=== PATIENT | female | born 1950 | race Caucasian/White ===

== ENCOUNTER 2020-01-02 07:23 | Emergency (ER) | payer MEDICARE ==
[~2020-01-02] VITALS: Ht 172.7 cm; Wt 153.7 kg
[~2020-01-02 07:23] MED LIST: WARF5TAB2 PO
[2020-01-02 07:58] LABS: BASOPHILS # (AUTO) 0.1 X10'3 (0-0.2); BASOPHILS % (AUTO) 0.9 % (0-1); EOSINOPHILS # (AUTO) 0.2 X10'3 (0-0.9); EOSINOPHILS % (AUTO) 2.3 % (0-6); HEMATOCRIT 43.6 % (35.0-45.0); HEMOGLOBIN 14.7 g/dl (12.0-16.0); LYMPHOCYTES # (AUTO) 1.6 X10'3 (1.1-4.8); LYMPHOCYTES % (AUTO) 23.7 % (21-51); MEAN CORPUSCULAR HGB CONC 33.7 g/dL (33.0-36.5); MEAN PLATELET VOLUME 8.7 FL (7.4-10.4); MONOCYTES # (AUTO) 0.6 X10'3 (0-0.9); MONOCYTES % (AUTO) 8.8 % (2-12); NEUTROPHILS # (AUTO) 4.5 X10'3 (1.8-7.7); NEUTROPHILS % (AUTO) 64.3 % (42-75); PLATELET COUNT 214 X10'3 (140-440); RED CELL DISTRIBUTION WIDTH 13.8 % (11.5-14.5)
[2020-01-02 08:16] LABS: ALANINE AMINOTRANSFERASE 33 U/L (12-78); ALBUMIN 3.5 G/DL (3.4-5.0); ALBUMIN/GLOBULIN RATIO 0.8 (1.1-1.5); ALKALINE PHOSPHATASE 97 IU/L (46-116); ANION GAP 8 (8-16); ASPARTATE AMINO TRANSFERASE 17 U/L (10-37); BILIRUBIN,TOTAL 0.3 MG/DL (0.1-1.0); BLOOD UREA NITROGEN 13 MG/DL (7-18); BUN/CREATININE RATIO 14.1 (6.6-38.0); CALCIUM 9.7 MG/DL (8.5-10.1); CHLORIDE 106 MMOL/L (99-107); CREATININE 0.92 MG/DL (0.40-0.90); GLUCOSE 140 MG/DL (70-104); POTASSIUM 4.1 MMOL/L (3.5-5.1); SODIUM 140 MMOL/L (135-145); TOTAL CARBON DIOXIDE 25.6 MMOL/L (24-32); TOTAL PROTEIN 7.7 G/DL (6.4-8.2); eGFR 61 ML/MIN
[2020-01-02 10:54] VITALS: BP 152/91
== END 2020-01-02 10:56 | disposition home or self-care (01) ==
LOC: ER 07:24
DX: R00.2 Palpitations (principal); R11.0 Nausea; M54.9 Dorsalgia, unspecified; I10 Essential (primary) hypertension; G47.30 Sleep apnea, unspecified; Z79.2 Long term (current) use of antibiotics; Z79.01 Long term (current) use of anticoagulants
CPT/HCPCS: 36415; 71045; 80053; 83880; 84484; 85025; 93005; 99285

== ENCOUNTER 2022-03-28 10:49 | Emergency (ER) | payer MEDICARE ==
[~2022-03-28] VITALS: Ht 172.7 cm; Wt 150.0 kg
[2022-03-28 10:55] VITALS: BP 150/96
== END 2022-03-28 13:36 | disposition home or self-care (01) ==
LOC: ER 10:50
DX: S00.12XA Contusion of left eyelid and periocular area, initial encounter (principal); R21 Rash and other nonspecific skin eruption; I10 Essential (primary) hypertension; Z91.041 Radiographic dye allergy status; X58.XXXA Exposure to other specified factors, initial encounter; Y93.89 Activity, other specified; Y92.89 Other specified places as the place of occurrence of the external cause; Y99.8 Other external cause status
CPT/HCPCS: 99282; 99283

== ENCOUNTER 2025-02-18 07:19 | Inpatient (IN) | payer MEDICARE ==
--- NOTE | 2025-02-17 10:13 | ELECTROCARDIOGRAPH REPORT ---
[facility] Test Date: 2025-02-17 Test Time: 10:10:17 Pat Name: DUKE MITCHELL Department: PRE/OP CARDIOLOGY [id number] Room: Gender: F Fire Control Assistant: SARAH : 1950 Requested By: IJEOMA NEGRO Order Number: [id number] Reading MD: Dr. MANJEET Silva Measurements Intervals [place] Rate: 70 P: 46 RI: 160 QRS: 8 QRSD: 100 T: 26 QT: 387 QTc: 418 Interpretive Statements Sinus arrhythmia Borderline T abnormalities, anterior leads Electronically Signed On 02-17-2025 17:07:[address] MANJEET Silva Please click the below link to view image of tracing.
[2025-02-17 10:18] LABS: MEAN PLATELET VOLUME 9.4 FL (7.4-10.4); PRE OP HEMATOCRIT 44.0 % (35.0-45.0); PRE OP HEMOGLOBIN 14.9 g/dL (12.0-16.0); PRE OP PLATELET COUNT 206 X10'3 (140-440); PRE OP WHITE BLOOD COUNT 7.1 10'3 (4.8-10.8); RED CELL DISTRIBUTION WIDTH 14.3 % (11.5-14.5)
[2025-02-17 10:24] LABS: LEUKOCYTE ESTERASE ,URINE NEGATIVE (Neg); NITRITES, URINE NEGATIVE (Neg); OCCULT BLOOD,URINE NEGATIVE (Neg)
[2025-02-17 10:26] LABS: PRE OP INR 1.0 INR; PRE OP PARTIAL THROMB. TIME 28.0 SECONDS (22-32); PRE OP PROTIME 10.7 SECONDS (9.0-12.0)
[2025-02-17 10:29] LABS: UA COLLECTION TYPE CLN CATCH MIDSTREAM
[2025-02-17 10:30] LABS: CREATININE 0.66 MG/DL (0.40-0.90); PRE OP ALT 23 U/L (30-65); PRE OP ANION GAP 3 (8-16); PRE OP AST 15 U/L (10-37); PRE OP BILIRUB, TOTAL 0.3 MG/DL (0.0-1.0); PRE OP GLUCOSE 102 MG/DL (70-104); PRE OP POTASSIUM 4.3 MMOL/L (3.4-5.1); PRE OP SODIUM 141 MMOL/L (135-145); TOTAL CARBON DIOXIDE 30.1 MMOL/L (24-32); eGFR 88 ML/MIN
--- NOTE | 2025-02-17 10:44 | RADIOLOGY REPORT ---
EXAM: DI CHEST,TWO VIEWS HISTORY: PREOP COMPARISON: None TECHNIQUE: PA and lateral views of the chest were performed. FINDINGS: No pneumothorax, pulmonary edema, pleural effusions, or consolidative infiltrates. There is mild central peribronchial thickening. The heart is borderline enlarged. The aortic arch is calcific. No fractures are identified about the bony thorax. There is moderate thoracic degenerative disc disease. IMPRESSION: Mild reactive airways disease. The lungs are otherwise clear.
[2025-02-18] VITALS (24 sets, daily range): BP systolic 115–158; BP diastolic 53–112; PULSE 65–115; RESP 11–25; TEMP 97.1–97.4; O2SAT 93–100
[~2025-02-18] VITALS: Ht 172.7 cm; Wt 140.0 kg
[2025-02-18] MEDS: Cefazolin 3 GM/100ML NS IVPB 100 ML IV ONE (05:30)
[~2025-02-18 07:19] MED LIST changes: +AMLO10TA13 PO; +APIX5TAB3 PO; +CYAN-36 PO; +CYCL1DRO EACHEYE; +ESTR42.53 VG; +LIPA1CAP18 PO; +OMEP20CA16 PO; +VITD400T PO; -WARF5TAB2 PO; +ondansetron/PF 4mg/2ml inj IV PRN
[2025-02-18] MEDS: VANCOMYCIN/H2O 1.5g/300mL PB 300 ML IV ONE (08:33)
[2025-02-18] MEDS: ringers solution, lacted 1,000 ML IV SCH (08:33)
[2025-02-18] MEDS ORDERED: fentaNYL/PF 50MCG/1 ML 2ML syringe ONE (09:42)
[2025-02-18] MEDS ORDERED: midazolam 1 mg/ML 2ml injection ONE (09:42)
[2025-02-18] MEDS ORDERED: rocuronium 10mg/ml inj IV ONE (10:09)
[2025-02-18] MEDS ORDERED: glycopyrrolate 0.2mg/ml inj ONE (10:20)
[2025-02-18] MEDS ORDERED: propofol inj 20 ML IV ONE (10:58)
[2025-02-18] MEDS ORDERED: ondansetron/PF 4mg/2ml inj ONE (10:58)
[2025-02-18] MEDS ORDERED: dexamethasone sod phosphate 4mg/ml inj. ONE (10:58)
[2025-02-18] MEDS ORDERED: potassium Cl 20mEq/100mL bag 100 ML IV PRN (12:00)
[2025-02-18] MEDS ORDERED: HYDROcodone/acetaminophen 5mg/325mg tablet PO PRN (12:00)
[2025-02-18] MEDS ORDERED: hydrALAZINE 20mg/ml inj. IV PRN (12:00)
[2025-02-18] MEDS ORDERED: potassium Cl 40MEQ/1/2NS 520ml 520 ML IV PRN (12:00)
[2025-02-18] MEDS ORDERED: labetalol 20mg/4ml (5mg/ml) syringe IV PRN (12:00)
[2025-02-18] MEDS ORDERED: magnesium sulf-water 2g/50mL 50 ML IV PRN (12:00)
[2025-02-18] MEDS ORDERED: potassium Cl 20 mEq SR tablet PO PRN (12:00)
[2025-02-18] MEDS ORDERED: potassium Cl 40MEQ/270ML bag 250 ML IV PRN (12:00)
[2025-02-18] MEDS ORDERED: potassium CL 10mEq/100ml bag 100 ML IV PRN (12:00)
[2025-02-18] MEDS ORDERED: ALPRAZolam 0.25mg tablet PO PRN (12:00)
[2025-02-18] MEDS: normal saline 1000ml 1,000 ML IV SCH (12:00)
[2025-02-18] MEDS ORDERED: docusate sod 100mg capsule PO PRN (12:00)
[2025-02-18] MEDS ORDERED: ondansetron/PF 4mg/2ml inj IV PRN (12:00)
[2025-02-18] MEDS ORDERED: pantoprazole 40mg Tablet.DR PO PRN (12:00)
[2025-02-18] MEDS ORDERED: magnesium sulf-water 4G/100mL 100 ML IV PRN (12:00)
--- NOTE | 2025-02-18 12:00 | ELECTROCARDIOGRAPH REPORT ---
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 MANJEET Silva Measurements Intervals [place] Rate: 71 P: 73 IA: 173 QRS: 52 QRSD: 83 T: -2 QT: 527 QTc: 573 Interpretive Statements Sinus rhythm Borderline T abnormalities, diffuse leads Prolonged QT interval Electronically Signed On 02-18-2025 16:54:[address] MANJEET Silva Please click the below link to view image of tracing.
--- NOTE | 2025-02-18 12:23 | OPERATIVE REPORT ---
Operative Report Providers to CC: GLENN GARCIA MD ~ Date of Procedure: Feb 18, 2025 Pre-Operative Diagnosis: Atrial Fibrillation with high bleeding risk Post-Operative Diagnosis SAME as PRE-Op Procedure Performed 1. Transseptal Puncture via MEI guidance 2. Left Atrial Appendogram 3. Left Atrial Appendage closure with 27mm Watchman FLX Pro Device 4. Ultrasound guided access, right Femoral Vein Surgeon: Ijeoma Garcia MD [employer] Learning Support Teacher n/a Anesthesiologist: Jose Luis Stubbs Type of Anesthesia: General Findings: Left Atrial appendage amenable to percutaneous closure. 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 They underwent General anesthesia. Ultrasound was used to guide access to the right femoral vein where two Perclose devices were placed and upsized to an 8Fr sheath. Heparin was given to maintain an ACT over 250 seconds. An 0.035" wire was advanced into the SVC. The 8Fr sheath was then removed and the 8.5Fr VersaCross Transseptal sheath was advanced into the SVC. The RF wire was then advanced to the tip of the sheath/dilator. Using MEI guidance, appropriate position of the tip of the sheath was determined and using an energized wire tip, advanced into the left atrium. The sheath and dilator were then advanced over the wire into the left atrium. Over the wire, the Versacross sheath was removed and exchanged for the Watchman TruSteer Sheath. The wire and dilator were then removed and exchanged for a 5Fr pigtail catheter which was placed into the left atrial appendage and an appendogram performed in the BERRY- Caudal position. There, ACT was confirmed to be therapeutic. The Watchman sheath was then advanced into the left atrial appendage over the pigtail catheter. Once appropriate position was determined, the pigtail was removed, the 27mm Watchman FLX device and delivery system were advanced into the tip of the sheath. The delivery system was advanced until an appropriate FLX ball was formed. The guide was then retracted and the Watchman device was unsheathed will full deployment in the appendage. Repeat imaging confirmed a slightly deep placement of the device so it was recaptured and repositioned in the anterior lobe of the appendage where it was again unsheathed. Then appeared too proximal so the TruSteer mechanism was used and the device positioned more anteriorly where it was again unsheathed with full deployment in the appendage. (Lobster claw appendage with small distal lobes) Next, PASS criteria was performed confirming adequate positioning and anchoring(using a tug-test), sizing showing adequate compression, and no significant leak around the device. Another Appendogram was performed confirming placement. The device was then released from the delivery system. The guide and delivery system were removed and the perclose tied as well as the hurhel-ga-lyidx suture, ensuring adequate hemostasis. Mean LA Presssure: 13mmHg Contrast: 40cc ACT: 296s Device Compression: 29% RESULTS: 1. Successful Left-Atrial Appendage closure with a 31mm Watchman FLX Pro device 2. Right Femoral Vein access, closed with Perclose x 2 and [id number]-az-[id number] suture 3. Resume Eliquis 5mg BID x 45days with repeat imaging at that time. If sealed without evidence of device related thrombosis, can stop OAC and start ASA 81mg QD indefinitely, plavix 75mg QD x 6 months. They will be watched in the recovery area until stable, then transferred to the telemetry at that time. IJEOMA GARCIA MD Feb 18, 2025 12:23
[2025-02-18] MEDS: Lipase/Protease/Amylase (Creon Dr 36,000 Units Capsule) PO SCH (14:50)
[2025-02-18] MEDS: sod chloride 0.9% 10ml flush syringe IV SCH (16:27)
[2025-02-18] MEDS: ceFAZolin 1GM/D5W- ADD-VANTAGE 50 ML IV SCH (17:13)
--- NOTE | 2025-02-18 17:24 | CARDIOLOGY REPORT ---
APPROVED REPORT EXAM: Focused, limited intraprocedural transesophageal 2D, spectral and color flow Doppler echocardiogram during WATCHMAN deployment. Patient Location: CARDIAC NURSE ORTHO Blood Pressure: 169 / 89 mmHg Heart Rate: 85 bpm Rhythm: SINUS Indications PRE IMAGING AND WATCHMAN FLX ROLF CLOSURE DEVICE IMPLANTATION CHRONIC ATRIAL FIBRILLATION 27mm WATCHMAN FLX ROLF CLOSURE DEVICE MEI PROBE PASSED BY: Angelika PALM MD Reshipping Clerk: Keshawn GARCIA MD / Interventionalist: Keshawn Garcia MD / Device rep: [facility] Previous echo: NA LEFT VENTRICLE Normal LV size and wall thickness. Overall systolic function is normal. LVEF is 70%. RIGHT VENTRICLE RV is normal size and function. ATRIA LA appears severely dilated. Irregular windsock (crab claw appeasrance) shaped appendage without thrombus detected. Left upper pulmonary vein identified. Intact interatrial septum. Width / length averages are: 0degr 11 x 10 mm; 45degr 17 x 18 mm; 90degr 16 x 19 mm; 135degr TDS. Loop 24: Septal tenting visualized with RF atrial septal puncture performed. Loop 27: Wire in LA. Pigtail advanced to tip of appendage. LA pressure is measured at:13 mmHG. Loop 30: Appendagram performed. Loop 32: Flex ball deployed. 27 mm Watchman FLX device, PASS criteria attempted, unsuccessfully. Visible gutter measuring 0.2 cm. Loop 62: Successful "TUG" test performed. PASS reassessed. Optimal compression obtained - shoulder to shoulder measurement is: 19.0 mm. Loop 65: Device released, sheath pulled back across interatrial septum. Device appears to have settled with a visible decrease in gutter size. Patent interatrial septum with small residual left to right shunt (s/p transseptal puncture) visualized with spectral and color Doppler. Successfully occluded left atrial appendage with Watchman device well positioned without thrombus. No significant residual - ? trivial anterior flow around device detected by color Doppler. No pericardial effusion post-implant. PERICARDIUM Trivial anterior pericardial effusion without compromise vs. anterior epicardial fat pad. CONCLUSION Normal LV size and wall thickness. Overall systolic function is normal. LVEF is 70%. RV is normal size and function. LA appears severely dilated. Irregular windsock (crab claw appeasrance) shaped appendage without thrombus detected. Left upper pulmonary vein identified. Intact interatrial septum. Width / length averages are: 0degr 11 x 10 mm; 45degr 17 x 18 mm; 90degr 16 x 19 mm; 135degr TDS. Loop 24: Septal tenting visualized with RF atrial septal puncture performed. Loop 27: Wire in LA. Pigtail advanced to tip of appendage. LA pressure is measured at:13 mmHG. Loop 30: Appendagram performed. Loop 32: Flex ball deployed. 27 mm Watchman FLX device, PASS criteria attempted, unsuccessfully. Visible gutter measuring 0.2 cm. Loop 62: Successful "TUG" test performed. PASS reassessed. Optimal compression obtained - shoulder to shoulder measurement is: 19.0 mm. Loop 65: Device released, sheath pulled back across interatrial septum. Device appears to have settled with a visible decrease in gutter size. Patent interatrial septum with small residual left to right shunt (s/p transseptal puncture) visualized with spectral and color Doppler. Successfully occluded left atrial appendage with Watchman device well positioned without thrombus. No significant residual - ? trivial anterior flow around device detected by color Doppler. No pericardial effusion post-implant. Trivial anterior pericardial effusion without compromise vs. anterior epicardial fat pad. Conclusion Normal LV size and wall thickness. Overall systolic function is normal. LVEF is 70%. RV is normal size and function. LA appears severely dilated. Irregular windsock (crab claw appeasrance) shaped appendage without thrombus detected. Left upper pulmonary vein identified. Intact interatrial septum. Width / length averages are: 0degr 11 x 10 mm; 45degr 17 x 18 mm; 90degr 16 x 19 mm; 135degr TDS. Loop 24: Septal tenting visualized with RF atrial septal puncture performed. Loop 27: Wire in LA. Pigtail advanced to tip of appendage. LA pressure is measured at:13 mmHG. Loop 30: Appendagram performed. Loop 32: Flex ball deployed. 27 mm Watchman FLX device, PASS criteria attempted, unsuccessfully. Visible gutter measuring 0.2 cm. Loop 62: Successful "TUG" test performed. PASS reassessed. Optimal compression obtained - shoulder to shoulder measurement is: 19.0 mm. Loop 65: Device released, sheath pulled back across interatrial septum. Device appears to have settled with a visible decrease in gutter size. Patent interatrial septum with small residual left to right shunt (s/p transseptal puncture) visualized with spectral and color Doppler. Successfully occluded left atrial appendage with Watchman device well positioned without thrombus. No significant residual - ? trivial anterior flow around device detected by color Doppler. No pericardial effusion post-implant. Trivial anterior pericardial effusion without compromise vs. anterior epicardial fat pad.
--- NOTE | 2025-02-18 17:39 | CARDIOLOGY REPORT ---
APPROVED REPORT EXAM: Limited 2D, Doppler, and color-flow Echocardiogram. Patient Location: 3020A Blood Pressure: 155/82 mmHg Heart Rate: 71 bpm Rhythm: Sinus Indications SAME DAY WATCHMAN IMPLANT FOLLOW-UP 27 mm Watchman FLX Closure Device - (02/18/25) Hand Picker is Keshawn Garcia MD Previous echo: 02/18/25, [facility], EF: 70; Intact interatrial septum with small left to right shunt by color and spectral flow Doppler s/p transeptal puncture; Trivial anterior effusion vs Fat Pad 2D Dimensions IVSd 1.1 (0.7-1.1cm) LVDd 4.8 cm PWd 1.0 (0.7-1.1cm) IVSs 1.5 (0.8-1.2cm) LVDs 3.0 (2.5-4.0cm) PWs 1.5 (0.8-1.2cm) LVEF(%) 67.4 (>50%) IVC 18.19 mm FS (%) 37.5 % SV 72.2 ml CO 6.1 L/min Tricuspid Valve TR P. Velocity 210 cm/s RAP ESTIMATE 10 mmHg TR Peak Gr. 18 mmHg RVSP 28 mmHg LEFT VENTRICLE Normal LV size and wall thickness. Overall systolic function is normal. LVEF is 65-70%. ATRIA Left atrium appears moderate to severely dilated. Intact interatrial septum with small L to R shunt s/p transseptal puncture by color and spectral Doppler. TRICUSPID VALVE Tricuspid valve is grossly normal in structure with trace regurgitation. PERICARDIUM Trivial anterior pericardial effusion vs fat pad. Unchanged. Other Information Study Quality: Adequate Conclusion Normal LV size and wall thickness. Overall systolic function is normal. LVEF is 65-70%. Left atrium appears moderate to severely dilated. Intact interatrial septum with small L to R shunt s/p transseptal puncture by color and spectral Doppler. Tricuspid valve is grossly normal in structure with trace regurgitation. Trivial anterior pericardial effusion vs fat pad. Unchanged.
[2025-02-18] MEDS: vancomycin/NS 1 GM ADD-VANTAGE 250 ML IV SCH (19:19)
[2025-02-19 02:00] VITALS: BP 126/60; PULSE 55; RESP 16; TEMP 97; O2SAT 92
[2025-02-19 06:00] VITALS: BP 155/72; PULSE 60; RESP 17; TEMP 97; O2SAT 96
[2025-02-19] MEDS: pantoprazole 40mg Tablet.DR PO SCH (07:03)
--- NOTE | 2025-02-19 07:15 | ELECTROCARDIOGRAPH REPORT ---
[facility] Test Date: 2025-02-19 Test Time: 07:11:51 Pat Name: DUKE MITCHELL Department: [facility] 3S Room: [place] [address] A Gender: F Anime Artist: JADEN : 1950 Requested By: IJEOMA NEGRO Order Number: [id number] Reading MD: Dr. MANJEET Silva Measurements Intervals [place] Rate: 59 P: 39 ID: [id number] QRS: 3 QRSD: 100 T: -1 QT: 446 QTc: 442 Interpretive Statements Sinus rhythm Borderline T abnormalities, anterior leads Electronically Signed On 02-19-2025 16:50:[address] MANJEET Silva Please click the below link to view image of tracing.
[2025-02-19 07:20] LABS: MEAN PLATELET VOLUME 9.8 FL (7.4-10.4); RED CELL DISTRIBUTION WIDTH 14.0 % (11.5-14.5)
[2025-02-19 07:30] LABS: INR 1.1 INR
[2025-02-19 07:49] LABS: CREATININE 0.80 MG/DL (0.40-0.90); PRO BRAIN NATRIURETIC PEPTIDE 192 PG/ML (0-125); TOTAL CARBON DIOXIDE 30.4 MMOL/L (24-32); eCRCL 63 ML/MIN; eGFR 70 ML/MIN
[2025-02-19 08:00] VITALS: RESP 17; O2SAT 96
--- NOTE | 2025-02-19 09:50 | RADIOLOGY REPORT ---
CHEST RADIOGRAPH Indication: s/p Watchman Technique: Single frontal view of the chest was obtained Comparison: DI CHEST TWO VIEWS on DOS: 02/17/25 FINDINGS: Lines and Tubes: None Lungs: No focal consolidation. Pleura: No effusion. No pneumothorax. Cardiomediastinal contours: Cardiomegaly. There is a watchman device noted. Bones: No acute osseous abnormality. IMPRESSION: 1. No acute cardiopulmonary disease.
[2025-02-19 11:00] VITALS: BP 113/49; PULSE 60; RESP 19; TEMP 97.2; O2SAT 98
[2025-02-19 15:00] VITALS: BP 126/53; PULSE 50; RESP 20; TEMP 98.6; O2SAT 95
--- NOTE | 2025-02-19 15:26 | DISCHARGE SUMMARY ---
Discharge Summary Providers to CC ~ Discharge Summary Admission Diagnosis: Atrial Fibrillation with high bleeding risk Hospital Course DATE OF ADMISSION: 02/18/25 DATE OF DISCHARGE: 02/19/25 Discharge Diagnosis\Comment: Atrial fibrillation with high-risk for bleeding status post left atrial appe ndage occlusion with Watchman Operations\Procedures: 1. Transseptal Puncture via MEI guidance 2. Left Atrial Appendogram 3. Left Atrial Appendage closure with 27mm Watchman FLX Pro Device 4. Ultrasound guided access, right Femoral Vein Consultants: No consultants Complications: No complications Condition on DC: Stable Continued Medications: Amlodipine Besylate (Amlodipine Besylate) 10 Mg Tablet 1 TAB PO QPM for 30 Days, #30 TAB 0 Refills Apixaban (Eliquis) 5 Mg Tablet 1 TAB PO BID Cholecalciferol (Vitamin D3) (Vitamin D) 10 Mcg (400 Unit) Tablet 1 TAB PO DAILY for 30 Days, #30 TAB 0 Refills Cyanocobalamin (Vitamin B-12) (B-12) 1,000 Mcg Tablet 1 TAB PO DAILY for 30 Days, #30 TAB 0 Refills Cyclosporine (Restasis) 0.05 % Droperette 1 DROP EACHEYE Q12H PRN for dry eyes Estradiol (Estrace) Unknown Strength Cream.appl 1 APPLIC VG MTH Lipase/Protease/Amylase (Milad Dominguez 36,000 Units Capsule) 36K-114K Capsule.dr 2 CAP PO CC Lipase/Protease/Amylase (Milad Dominguez 36,000 Units Capsule) 36K-114K Capsule.dr 1 CAP PO PRN PRN for SNACKS for 30 Days, #60 CAP 0 Refills Omeprazole (Omeprazole) 20 Mg Capsule.dr 1 CAP PO DAILY for 30 Days, #30 CAP 0 Refills Discharge Summary: Patient with past medical history significant for atrial fibrillation with high- risk for bleeding presented for planned left atrial appendage occlusion with Watchman. Underwent placement of a 27 mm watchman FL X pro device with Dr. Jd Garcia. Please see his dictation for further details on the procedure. He tolerated the procedure well. Was monitored overnight in the telemetry unit. Has remained hemodynamically stable. Has been up and ambulatory with no complaints of chest pain, pressure, shortness for breath. No dizziness, lightheadedness or syncope. Postoperative testing was reviewed by Dr. Jd Garcia and she was deemed stable for discharge home. Physical exam prior to discharge: General: Awake, alert, oriented. No apparent distress Neck: Supple. Normal range of motion. No JVD Respiratory: Lungs are clear to auscultation bilaterally. No respiratory distress. Chest: Normal shape and size. No accessory muscle use. Cardiovascular: Regular rate and rhythm. S1-S2. No murmur, gallop, rub. Gastrointestinal: Abdomen is soft. Nontender to palpation. Bowel sounds present. Extremities: No lower extremity edema, cyanosis or clubbing. Femoral cath site with dressing with small amount of blood. No hematoma or swelling. Neurologic: Alert and oriented x4. Nonfocal Psychiatric: Normal mood and affect. Skin: Normal color. Warm and dry. Plan: Patient is being discharged home in stable condition. We will follow up as scheduled. Activity restrictions reviewed. We will take oral anticoagulation as prescribed. *Problems/Diagnosis: (1) Atrial fibrillation Total Time Spent on D/C: Up to 30 Minutes Counseling Services Smoking & Tobacco Cessation: N/A MERLINE CAREY NP Feb 19, 2025 15:26
== END 2025-02-19 16:04 | disposition home or self-care (01) | DRG 274 ==
LOC: PAS IN 07:19 → PCU 3S 12:54
PROVIDERS: ADMIT Student in an Organized Health Care Education/Training Program; ATTEND Student in an Organized Health Care Education/Training Program
PROC: B24BZZ4 Ultrasonography of Heart with Aorta, Transesophageal (ICD-10-PCS; 2025-02-18)
PROC: 02L73DK Occlusion of Left Atrial Appendage with Intraluminal Device, Percutaneous Approach (ICD-10-PCS; principal; 2025-02-18 09:57)
DX: I48.91 Unspecified atrial fibrillation (principal); Z00.6 Encounter for examination for normal comparison and control in clinical research program; Z88.5 Allergy status to narcotic agent; Z91.030 Bee allergy status
CPT/HCPCS: 33340; 36415; 71045; 71046; 76937; 80053; 81003; 82948; 83735; 83880; 85025; 85347; 85610; 85730; 86885; 86900; 86901; 86920; 87081; 93005; 93308; 93312; 93325; A4618; A6258; A6449; C1760; C1889; C1894; G0378; J0690; J1100; J1644; J2250; J2405; J2704; J2710; J3010; J3373; J3375; J3490; J7030; J7120; Q0163; Q9967